=== PATIENT | female | born 1945 | race Caucasian/White ===

== ENCOUNTER → 2016-02-23 | Outpatient (CLI) | payer MEDICARE, OTHER ==
[~2016-02-23] MED LIST: ASPI81TA81; BENI20TA25 PO; BENI40TA7 PO; CALC500T15 PO; CRAN1000; CRAN250C; CRAN500C2 PO; DARV PO; EYECAP PO; FISH120014 PO; FLUO20SO3 PO; GLUCTAB PO; GLUCTAB4 PO; GLUCTAB47 PO; METF500T PO; NEXI40CA PO; PERC5TAB12 PO; PRIL20CA9 PO; ROSU1TAB8 PO; ROSU20 PO; SUPETAB PO; VITA10004 PO; VITA500T49 PO; [UNRECOGNIZED DRUG - OTHER] PO
[2016-02-23 10:56] LABS: BLOOD, URINE NEG (NEG); COMMENT (UR) CULT NOT INDICATED; CULTURE IF INDICATED CULT NOT INDICATED; GLUCOSE,URINE NEG (NEG); KETONE, URINE NEG (NEG); MUCUS URINE FEW /lpf (OCC); NITRITE,URINE NEG (NEG); SQUAMOUS EPITHELIAL CELL URINE <1 /hpf (0-5); URINE COLOR YELLOW (YELLW/STRAW)
[2016-02-23 10:57] LABS: PROTHROMBIN TIME - PATIENT 10.8 SEC (9.8-11.6)
[2016-02-23 11:14] LABS: BICARBONATE 30.7 MEQ/L (21.0-32.0); POTASSIUM 4.2 MEQ/L (3.5-5.1)
--- NOTE | 2016-02-23 11:46 | RADRPT ---
EXAM DATE/TIME: 02/23/2016 10:56 [facility] COMPARISON: No previous studies available for comparison. INDICATIONS : Evaluate for pneumonia, pneumothorax or communicable disease. Preop chest for left knee surgery on . No chest complaints at this time, no history of heart or lung problems, quit smoking 11 years ago MEDICAL HISTORY : None. SURGICAL HISTORY : None. ENCOUNTER: Initial ACUITY: 1 day PAIN SCORE: 0/10 LOCATION: Bilateral chest FINDINGS: PA and lateral views of the chest demonstrate the lungs to be symmetrically aerated without evidence of mass, infiltrate or effusion. The cardiomediastinal contours are unremarkable. Osseous structure s are intact. CONCLUSION: 1. No active disease. Minimal linear scarring at the bases. Ti Brown MD on February 23, 2016 at 11:35 Board Certified Radiologist. This report was verified electronically.
== END ==
LOC: CPRE 09:42
PROVIDERS: ATTEND Orthopaedic Surgery
DX: Z01.811 Encounter for preprocedural respiratory examination (principal); Z01.812 Encounter for preprocedural laboratory examination; S83.232A Complex tear of medial meniscus, current injury, left knee, initial encounter; X58.XXXA Exposure to other specified factors, initial encounter
CPT/HCPCS: 36415; 71020; 80048; 81001; 85610

== ENCOUNTER → 2016-03-02 | Day surgery (SDC) | payer MEDICARE, OTHER ==
--- NOTE | 2016-02-17 13:40 | MH ---
cc: NIKOLASTOÑOWINNIE DATE OF ADMISSION: 03/02/2016 ADMITTING DIAGNOSIS: Complex tear of the medial meniscus of her left knee chondromalacia left knee, chondromalacia patellae left knee effusion left knee popliteal cyst left knee and pain of the left knee. HISTORY The patient is a 70-year-old white female who has experienced pain of her left knee of greater than 1 month duration. She had noted the abrupt onset of generalized pain about the medial aspect of her left knee unrelated to injury or unusual activity. She was later seen by her primary care physician Dr. Danna Wisdom at which time x-ray studies were completed and apparently did identify some narrowing about the medial compartment and the patellofemoral joint there was no acute bony abnormality identified. The patient was prescribed Percocet for pain management and some type of a topical ointment. She remained symptomatic for which she underwent a subsequent MRI scan of the left knee. The results of which reported a large complex tear of the medial meniscus associated with chondromalacia of the medial femoral condyle and patellofemoral compartment. A small joint effusion was associated with a small Baldwin's cyst. The patient was later seen by the undersigned physician at which time she described ongoing pain about her left knee with an intermittent grinding like sensation. She was having difficulty conforming to weightbearing activities because of her symptoms. She did report that she had undergone previous arthroscopic surgery of her left knee within the previous 25 years as completed in the [facility]. The patient reported an uneventful recovery at that time. Her current findings were reviewed and treatment options discussed the pros and cons of continuing with conservative management versus operative intervention that would involve arthroscopic surgery and possible arthrotomy a arthrotomy of her left knee were reviewed. The patient indicated that her symptoms were of such a degree that she was desirous of proceeding in this direction and in compliance with her wishes she is currently being admitted in order that the above be accomplished. PAST MEDICAL HISTORY/HOSPITALIZATIONS/SURGERIES: 1. In addition to the arthroscopic surgery described have included lumbar spine surgery x2. 2. The abdominal hysterectomy 3. laser surgery of the eyes bilaterally. 4. Colonoscopy and childbirth. The patient's medical illnesses include hypertension and diabetes. MEDICATIONS current medications 1. 81 mg aspirin tablet daily. 1. Benicar 40 mg daily. 2. Metformin 500 mg. 3. Omeprazole 20 mg. 4. Percocet 5 mg p.r.n. 5. supplements including Calcium 500 mg 6. Concentrate cranberry. 7. Vitamin B12. 8. Vitamin C. ALLERGIES MORPHINE WHICH HAS BEEN ASSOCIATED WITH NAUSEA AND VOMITING. REVIEW OF SYSTEMS She does wear glasses for reading purposes. Denies headache, seizure or syncope. No sinus congestion or epistaxis. Auditory acuity intact. No tinnitus. No bleeding gums or dysphagia. Denies cough, shortness of breath, upper respiratory infection, pneumonia or tuberculosis. No angina or heart disease. Appetite is good bowel movements are regular. No hepatitis, gallbladder disease, ulcers or hemorrhoids. No urinary tract infection. No kidney stones. No previous fractures. No psychiatric illness. Her remaining review of systems is unremarkable and noncontributory. FAMILY HISTORY The patient has been a for 24 years. Her at 47 years of age secondary to suicide, one son is described as being in good health. Family history is positive for hypertension, diabetes, heart disease and kidney disease. SOCIAL HISTORY The patient completed the eleventh grade education. 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 She denies active use of tobacco for at least 10 years but had been a one-pack per day user for almost 35 years prior to that time. Ethanol consumption on rare occasion. PHYSICAL EXAMINATION IN GENERAL: Height 5 feet eight 1/2 inch, weight 218 pounds. An alert, oriented responsive 70-year-old white female who sits quietly upon examination table with no apparent distress. HEAD, EYES, EARS, NOSE, AND THROAT: Eyes, nose and throat pupils are equal, round and reactive to light. Extraocular movements full. Sclerae clear. External nares clear. External auditory canals clear. Edentulous. Mucous membranes pink and moist. Pharynx clear. NECK: Supple. Active range of motion with no appreciable pain. Carotid pulse bilaterally. Trachea midline. Thyroid without enlargement. LUNGS: The lungs are clear to auscultation and percussion. No CVA tenderness. No discomfort throughout the dorsal lumbar spine. HEART: Regular rhythm. No murmur or gallop. ABDOMEN: The abdomen is soft, nontender. Bowel sounds present. PELVIC: Per primary care physician. EXTREMITIES: Left knee. There is no significant swelling or effusion. Medial joint line tenderness without palpable deformity. Apprehension and compression sign are negative. There is limited mobility at the extreme of flexion without associated crepitation. No collateral ligamentous instability. Ivy test and drawer sign negative. Pivot shift and Simon sign positive for medial compartment pain. Straight-leg raising unremarkable at 80 degrees satisfactory mobility of the left hip with no associated pain. Independent gait. The patient is unable to accomplish a deep knee bend maneuver secondary to pain. Apprehension. NEUROLOGIC: Cranial nerves II-XII grossly intact. IMPRESSION 1. Complex tear of the medial meniscus left knee 2. Chondromalacia left knee 3. Chondromalacia patellae left knee 4. Effusion left knee 5. Popliteal cyst left knee 6. Pain of the left knee PLAN Arthroscopic surgery and possible arthrotomy of the left knee. The nature of the planned surgical procedure the potential complications and risks associated the expectations of surgery and the consent form have been thoroughly reviewed with the patient prior to admission to the hospital. Maryjane has indicated her full understanding regarding all of the above and given consent to proceed with treatment as outlined. MD MAGEN Roberts/ /12:52 PM /1:04 PM
[~2016-03-02] VITALS: Ht 172.7 cm; Wt 99.9 kg
[~2016-03-02] MED LIST changes: +ACETAMINOPHEN 1000 MG/100 ML VIAL IV ONE; +ACETAMINOPHEN/HYDROcodone 325 MG/5 MG TAB PO PRN; -BENI20TA25 PO; +CHLORHEXIDINE GLUCONATE 4% SOLN 120 ML BTL TOP SCH; -DARV PO; +DEXAMETHASONE SOD PHOS 4 MG/ML VIAL ONE; +DO NOT ADM ANY ANTICOAGULANT DRUGS XX PRN; +FAMOTIDINE 20 MG/2 ML VIAL ONE; -FLUO20SO3 PO; -GLUCTAB PO; -GLUCTAB47 PO; +INSULIN HUMAN REGULAR 1,000 UNITS/10 ML VIAL SQ PRN; +KETOROLAC TROMETHAMINE 60 MG/2 ML (IM) VIAL IM ONE; +LACTATED RINGER'S 1000 ML INJ 1,000 ML IV ONE; +LACTATED RINGER'S 1000 ML IV SCH; +LIDOCAINE HCL 2% 20 ML VIAL INFIL ONE; +LIDOCAINE HCL 2% PF SOLN 10 ML VIAL ONE; +MEPERIDINE HCL 50 MG/ML VIAL IM PRN; +METOPROLOL TARTRATE 25 MG TAB PO PRN; +MIDAZOLAM HCL 2 MG/2 ML VIAL ONE; +NEOSTIGMINE 3 MG/3 ML SYR IV ONE; -NEXI40CA PO; +ONDANSETRON HCL 4 MG/2 ML VIAL IV PUSH ONE; +ONDANSETRON HCL 4 MG/2 ML VIAL ONE; +PROMETHAZINE INJ 25 MG/ML VIAL IM PRN; +PROPOFOL 200 MG/20 ML AMP IV ONE; -ROSU20 PO; +SODIUM CHLORID 0.9% 500 ML IV SCH; +TRIAMCINOLONE ACETONIDE 50 MG/5 ML VIAL I-ARTICULR ONE; -[UNRECOGNIZED DRUG - OTHER] PO; +ceFAZolin 2 GM PREMIX 50 ML IV SCH; +fentaNYL CITRATE 250 MCG/5 ML AMP ONE
[2016-03-02 07:53] VITALS: BP 147/73; PULSE 87; RESP 16; TEMP 98.1; O2SAT 96
[2016-03-02 12:43] VITALS: BP 124/69; PULSE 87; RESP 18; TEMP 97.7; O2SAT 98
--- NOTE | 2016-03-02 17:53 | EKG ---
Date Performed: 03/02/2016 Time Performed: 08:18:48 PTAGE: 70 years EKG: Sinus rhythm LOW QRS VOLTAGE IN PRECORDIAL LEADS BORDERLINE ECG NO PREVIOUS TRACING DOCTOR: Rahel Garcia Interpretating Date/Time 03/02/2016 17:52:41
--- NOTE | 2016-03-03 20:54 | MP ---
cc: WINNIE SAUNDERS DATE OF SURGERY: 03/03/2016. PREOPERATIVE DIAGNOSIS: 1. Complex tear medial meniscus left knee. 2. Chondromalacia left knee with chondromalacia patellae. 3. Effusion, popliteal cyst and pain of the left knee. POSTOPERATIVE DIAGNOSIS: 1. Complex tear medial meniscus left knee. 2. Chondromalacia left knee with chondromalacia patellae. 3. Effusion, popliteal cyst and pain of the left knee. OPERATIVE PROCEDURE PERFORMED: 1. Partial medial meniscectomy left knee. 2. Chondroplasty of the patellofemoral joint left knee. SURGEON: Winnie Saunders MD. ANESTHESIA: General by LMA. DESCRIPTION OF THE PROCEDURE IN DETAIL/ FORMAT: Following the induction of satisfactory general anesthesia by LMA insertion as completed per the department of anesthesia, examination of the left knee demonstrated a satisfactory range of motion. No appreciable ligamentous instability. The extremity proper was positioned in the optical assistant knee mcgovern, prepped with Betadine solution and draped into a sterile field in the routine manner. Prior to initiation of the actual procedure, the standard time-out protocol was completed. All parameters were appropriately addressed and confirmed by operating room personnel. The arthroscopic instrumentation was introduced through a stab wound utilizing cannula with sharp and blunt trocar, the inflow irrigation by way of a medial suprapatellar portal and the arthroscope through a lateral parapatellar portal and a probe through a medial parapatellar portal. Examination of the suprapatellar pouch did reveal localized reactive synovitis. Within the patellofemoral articulation, there was obvious articular irregularity along the surface of the joint consistent with localized chondromalacia. Within the medial compartment, a complex tear of the medial meniscus involving both the body and posterior horn region was identified. There were some localized degenerative changes involving the associated articular surfaces of both the femoral condyle and the tibial plateau. Proliferative synovium extended into the intercondylar region. The anterior cruciate ligament was identified and noted to be intact. Within the lateral compartment, there was uniformity of the articular surfaces. The lateral meniscus appeared intact. Attention was redirected to the medial compartment. Utilizing a 4.0 aggressive resector, a partial medial meniscectomy was accomplished as well as debridement along the articular surfaces of the femoral condyle and tibial plateau. The resector was thereafter oriented into the patellofemoral articulation where generalized chondroplasty was accomplished. Thereafter the joint space was thoroughly lavaged and suctioned dry and intra-articular Kenalog / lidocaine injection was completed. The portal sites were thereafter reapproximated with Steri-Strips over which Xeroform gauze and a bulky dry sterile dressing were placed. Anesthesia was discontinued and the patient thus transferred to a hospital stretcher and returned to the recovery room in satisfactory condition having tolerated her operative procedure well. Estimated blood loss was less than 5 mL. MD MAGEN Roberts/JCElan /11:30 AM /8:47 PM
== END | disposition home or self-care (01) ==
LOC: HSDC 06:50
PROVIDERS: ATTEND Orthopaedic Surgery
DX: S83.232A Complex tear of medial meniscus, current injury, left knee, initial encounter (principal); M94.262 Chondromalacia, left knee; M22.42 Chondromalacia patellae, left knee; M71.22 Synovial cyst of popliteal space [Baker], left knee; M65.862 Other synovitis and tenosynovitis, left lower leg; M25.462 Effusion, left knee; M25.562 Pain in left knee; Z01.810 Encounter for preprocedural cardiovascular examination; I10 Essential (primary) hypertension; E11.9 Type 2 diabetes mellitus without complications; Z79.82 Long term (current) use of aspirin; Z79.84 Long term (current) use of oral hypoglycemic drugs
CPT/HCPCS: 01400; 29881; 93005; G0289; J0131; J0690; J1100; J1885; J2250; J2405; J2710; J3010; J3301; J7120